=== PATIENT | male | born 2000 | race Caucasian/White ===

== ENCOUNTER 2019-08-21 18:22 | Emergency (ER) | payer MEDICAID ==
[~2019-08-21] VITALS: Ht 172.7 cm; Wt 63.0 kg
--- NOTE | 2019-08-21 19:30 | NUR ---
GAVE PT SANDWICH, APPLE JUICE, YOGURT AND CHEESE, MEG WELL, NO N/V
[2019-08-21 19:33] LABS: CLARITY,URINE CLEAR (Clear); COLOR,URINE YELLOW (Yellow); GLUCOSE, URINE NEGATIVE (Neg); KETONES,URINE NEGATIVE (Neg); LEUKOCYTE ESTERASE ,URINE NEGATIVE (Neg); NITRITES, URINE NEGATIVE (Neg); OCCULT BLOOD,URINE NEGATIVE (Neg); PROTEIN,URINE NEGATIVE (Neg); UROBILINOGEN,URINE 0.2 E.U/dL (0.2-1.0)
[2019-08-21 19:33] LABS: BASOPHILS % (AUTO) 0.2 % (0-1); EOSINOPHILS # (AUTO) 0.1 X10'3 (0-0.9); EOSINOPHILS % (AUTO) 2.5 % (0-6); HEMATOCRIT 40.3 % (42.0-52.0); HEMOGLOBIN 13.8 g/dl (14.0-17.9); LYMPHOCYTES # (AUTO) 1.5 X10'3 (1.1-4.8); LYMPHOCYTES % (AUTO) 26.4 % (21-51); MEAN CORPUSCULAR HEMOGLOBIN 29.9 PG (27.0-31.0); MEAN CORPUSCULAR HGB CONC 34.2 g/dL (33.0-36.5); MEAN CORPUSCULAR VOLUME 87.5 FL (78-98); MEAN PLATELET VOLUME 6.9 FL (7.4-10.4); MONOCYTES # (AUTO) 0.4 X10'3 (0-0.9); MONOCYTES % (AUTO) 7.4 % (2-12); NEUTROPHILS # (AUTO) 3.5 X10'3 (1.8-7.7); NEUTROPHILS % (AUTO) 63.5 % (42-75); PLATELET COUNT 229 X10'3 (140-440); RED BLOOD COUNT 4.61 X10'6 (4.70-6.10); RED CELL DISTRIBUTION WIDTH 12.9 % (11.5-14.5); WHITE BLOOD COUNT 5.6 X10'3 (4.5-11.0)
[2019-08-21 19:37] LABS: UA COLLECTION TYPE CLN CATCH MIDSTREAM
[2019-08-21 19:42] LABS: URINE AMPHETAMINE SCREEN NEGATIVE (Neg); URINE BARBITUATE SCREEN NEGATIVE (Neg); URINE BENZODIAZEPINES SCREEN NEGATIVE (Neg); URINE CANNABINOID SCREEN NEGATIVE (Neg); URINE COCAINE SCREEN NEGATIVE (Neg); URINE METHADONE SCREEN NEGATIVE (Neg); URINE OPIATE SCREEN NEGATIVE (Neg); URINE PHENCYCLIDINE SCREEN NEGATIVE (Neg)
[2019-08-21 19:47] LABS: ALANINE AMINOTRANSFERASE 37 U/L (12-78); ALBUMIN 4.2 G/DL (3.4-5.0); ALBUMIN/GLOBULIN RATIO 1.4 (1.1-1.5); ALKALINE PHOSPHATASE 71 IU/L (20-180); ANION GAP 7 (8-16); ASPARTATE AMINO TRANSFERASE 19 U/L (10-37); BILIRUBIN,TOTAL 0.3 MG/DL (0.1-1.0); BLOOD UREA NITROGEN 23 MG/DL (7-18); CALCIUM 9.1 MG/DL (8.5-10.1); CHLORIDE 105 MMOL/L (99-107); GLUCOSE 116 MG/DL (70-104); POTASSIUM 3.7 MMOL/L (3.5-5.1); SODIUM 141 MMOL/L (135-145); TOTAL CARBON DIOXIDE 29.4 MMOL/L (24-32); TOTAL PROTEIN 7.3 G/DL (6.4-8.2); eGFR > 90 ML/MIN
[2019-08-21 20:00] LABS: ETHANOL < 0.010 GM/DL (0.0-0.010)
--- NOTE | 2019-08-21 21:11 | NUR ---
PT IS SLEEPING, RESP EVEN AND UNLABORED
--- NOTE | 2019-08-21 21:29 | NUR ---
PACKET FAXED TO [facility], LEFT MSG TO SEE IF THEY RECEIVED INFO
[2019-08-21] MEDS ORDERED: CLON-529 PO (21:37)
[2019-08-21] MEDS ORDERED: OLAN5TAB3 PO (21:37)
[2019-08-21] MEDS ORDERED: FLUO10CA28 PO (21:37)
--- NOTE | 2019-08-21 21:48 | NUR ---
[facility] AWARE PACKET WAS FAXED
--- NOTE | 2019-08-21 23:00 | NUR ---
pt is sleeping, resp even and unlabored
--- NOTE | 2019-08-22 01:18 | NUR ---
pt continues to sleep quietly
--- NOTE | 2019-08-22 01:26 | NUR ---
PT SLEEPING QUIETLY IN BED WITH NO SIGNS OF DISTRESS. RESPIRATIONS EVEN AND UNLABORED. WILL CONTINUE TO MONITOR.
[2019-08-22 05:30] VITALS: BP 106/56
--- NOTE | 2019-08-22 06:52 | NUR ---
pt is sleeping, does not appear to be in distress.
--- NOTE | 2019-08-22 07:57 | NUR ---
pt is asleep, does not appear to be in distress.
[2019-08-22] MEDS ORDERED: FLUoxetine 20mg capsule PO SCH (08:00)
--- NOTE | 2019-08-22 08:16 | NUR ---
PT AWAKE AND EATING BREAKFAST. NO NEEDS AT THIS TIME
--- NOTE | 2019-08-22 10:00 | NUR ---
pt is sitting quietly, no distress noted.
--- NOTE | 2019-08-22 11:13 | NUR ---
pt is asleep, he does not appear to be in distress
--- NOTE | 2019-08-22 13:33 | NUR ---
PT SITTING UP IN BED EATING LUNCH
--- NOTE | 2019-08-22 14:00 | NUR ---
pt is sitting quietly in bed
--- NOTE | 2019-08-22 16:30 | NUR ---
PT READY FOR DC. AWAITING PTS MOM TO POLYSOMNOGRAPHY TECH. PTS MOM STATES SHE HAS A FEW THINGS TO DO AND HAS TO CALL HER WORK TO GET HER SCHEDULE WORKED OUT AND SHE WILL BE HERE.
[2019-08-22] MEDS ORDERED: OLANZAPINE 5 MG TABLET PO SCH (21:00)
[2019-08-22] MEDS ORDERED: cloNIDine 0.1 mg tablet PO SCH (21:00)
== END 2019-08-22 18:08 | disposition home or self-care (01) ==
LOC: ER 18:23
DX: F32.9 Major depressive disorder, single episode, unspecified (principal); F91.8 Other conduct disorders
CPT/HCPCS: 36415; 80053; 80305; 80320; 81003; 84443; 85025; 99285